=== PATIENT | female | born 1950 | race Caucasian/White ===

== ENCOUNTER → 2018-08-18 | Outpatient (CLI) | payer OTHER, MEDICARE | LOC: FIMAGING 13:04 | PROVIDERS: ATTEND Orthopaedic Surgery | DX: M16.11 Unilateral primary osteoarthritis, right hip (principal) ==

== ENCOUNTER 2018-08-20 07:15 | Inpatient (IN) | payer OTHER, MEDICARE ==
--- NOTE | 2018-09-14 06:40 | PDHPUP ---
History & Physical Update H&P update statement: This history and physical update is based on an assessment of the patient which was completed after admission or registration (within 24 hours), but prior to the surgery/procedure. H&P update: no change in patient's condition since H&P completed
--- NOTE | 2018-09-14 06:40 | PDIAF ---
- Diagnosis Diagnosis: right hip djd Code Status: Full Code - Medication Management Discharge Medications: electronically signed and located in the Home Medication List. - Orders Services needed: Home Care, Physical Therapy Home Care Face to Face: I certify that this patient was under my care and that I had the required [id number] encounter meeting the encounter requirements on the discharge day. My findings support the fact that the patient is homebound as defined in Home Care Face to Face Continued: CMS Chapter 7 Medicare Benefits Manual 30.1.1 , The condition of the patient is such that there exists a normal inability to leave home and consequently, leaving home would require a considerable and taxing effort. Diet Recommendation: no restrictions on diet Diet Texture: Regular Texture Diet Additional Instructions: TOTAL JOINT ARTHROPLASTY DISCHARGE INSTRUCTIONS 1. Your surgeon follows the [facility] protocol for reducing your risk of DVT (blood clots) following surgery. Medication will be ordered to prevent blood clots. A sudden increase in calf pain and/or swelling could indicate a blood clot in your leg. If this occurs, please call your surgeon or his/her regulatory assistant. An ultrasound of the leg may be necessary to diagnose a blood clot. If you have conditions that make you a higher risk for blood clots, your surgeon may use more aggressive ways to prevent them. Notify your surgeon if you think you are a high risk for blood clots. 2. Wear your white surgical stockings (SUE hose) for 2 weeks. This decreases your swelling and may help prevent blood clots. It is ok to remove SUE hose at night time to give your legs a break. 3. Swelling and bruising in the surgical leg is common. If you feel that it is excessive, please notify your surgeon. 4. Elevate your surgical leg with the ankle above the hip several times every day. Please keep the leg straight when you elevate by putting pillows under your foot. Do not put pillows under your knee. This will make being able to fully straighten more difficult. This is uncomfortable, but try to do it as much as possible. 5. For total knee replacements use compressive wrap on your knee for 3-5 days after surgery, then you can discontinue it. 6. Use a walker or crutches for 1-2 weeks. Progress your weight-bearing as tolerated. You may start to use a cane when you feel stable and safe. 7. You will receive physical therapy instructions in the hospital. Continue those exercises at home. There are additional exercises in the total joint booklet you were given before surgery. Outpatient physical therapy will begin 7- 10 days after surgery. Please schedule this in advance. 8. Use ice on your knee at least 3-5 times every day for 30 minutes. This helps reduce pain and swelling. Also use it at night before falling asleep. 9. Leave your surgical dressing in place for 2 weeks. Your dressing is water resistant, but not waterproof. Cover it with Saran Wrap or Ohkko-s-Sfau before showering. You may shower as soon as you feel safe entering a shower. If you notice bleeding from your incision 2 or 3 days after surgery, please notify your surgeon. 10. Due to narcotics, decreased activity and altered diet, most patients experience constipation after surgery. Use qyxi-vmk-oedzeyc stool softeners while you are on narcotics. 11. You may drive a car when you are comfortable bearing weight, have good muscular control of your leg and are off narcotics. This usually occurs 2-4 weeks after surgery, depending on which leg was operated on. 12. If there are questions not addressed here, please refer the [facility] book given for more information. If you still have questions, please contact your surgeon s office. 13. If you have a life-threatening emergency, please call 911 and go to the emergency room immediately. For non-life threatening emergencies, please call your physicians office for advice before going to the emergency room. - Follow Up Care Current Providers and Referrals: Mayra Arreola MD [Primary Care Provider] - Joce Parmar MD [Medical Doctor] -
[2018-09-14] MEDS ORDERED: ceFAZolin 1 GM/5 ML SYR ONE (08:11)
[2018-09-14] MEDS ORDERED: FAMOTIDINE 20 MG TAB PO ONE (08:19)
[2018-09-14] MEDS ORDERED: ACETAMINOPHEN 325 MG TAB PO ONE (08:19)
[2018-09-14] MEDS ORDERED: ceFAZolin 2 GM/DEXTROSE 100 ML IV ONE (08:19)
[2018-09-14] MEDS ORDERED: LR 1,000 ML IV ONE (08:21)
[2018-09-14] MEDS ORDERED: MIDAZOLAM 2 MG/2 ML VIAL IVP ONE (09:25)
--- NOTE | 2018-09-14 09:25 | PDANEPAE ---
ANE History of Present Illness right hip OA for ROCKY ANE Past Medical History - Cardiovascular History Hx Hypertension: No Hx Arrhythmias: No Hx Chest Pain: No Hx Coronary Artery / Peripheral Vascular Disease: No Hx CHF / Valvular Disease: No Hx Palpitations: No - Pulmonary History Hx COPD: No Hx Asthma/Reactive Airway Disease: No Hx Recent Upper Respiratory Infection: No Hx Oxygen in Use at Home: No Hx Sleep Apnea: No Sleep Apnea Screening Result - Last Documented: Negative - Neurologic History Hx Cerebrovascular Accident: No Hx Seizures: No Hx Dementia: No - Endocrine History Hx Diabetes: No Obesity: no - Renal History Hx Renal Disorders: No - Liver History Hx Hepatic Disorders: No - Neurological & Psychiatric Hx Hx Neurological and Psychiatric Disorders: Yes Neurological / Psychiatric History Comment: DEPRESSION - Cancer History Hx Cancer: No - Congenital Disorder History Hx Congenital Disorders: No - GI History Hx Gastrointestinal Disorders: No - Other Health History Other Health History: YEARS AGO EYE INFECTIONS/ALLERGIES PLACED ON DAILY ANTIHISTAMINE FOR MANAGEMENT - Chronic Pain History Chronic Pain: Yes (RT HIP) - Surgical History Prior Surgeries: RT CATARACT 2009. LT BUNION AND HAMMER TOE REPAIR. APPENDECTOMY ANE Review of Systems Review of systems is: negative Review of Systems: - Exercise capacity METS (RN): 4 METS ANE Patient History - Allergies Allergies/Adverse Reactions: oxycodone [From Percocet] Allergy (Verified 09/01/18 10:58) Hives/Vomiting Sulfa (Sulfonamide Antibiotics) Allergy (Verified 09/04/18 10:37) Rash - Home Medications Home medications: home medication list seen and reviewed Home Medications: Alendronate Sodium [Fosamax 70 MG (*)] 70 mg PO NICOLE@0700 09/01/18 [Last Taken 1 Week Ago ~09/07/18] Aspirin [Aspirin 81mg (*)] 81 mg PO DAILY 09/01/18 [Last Taken 1 Week Ago ~09/07] Calcium Carbonate [Oyster Shell Calcium 500 mg (*)] 500 mg PO DAILY 09/01/18 [ Last Taken 1 Week Ago ~09/07/18] Citalopram Hydrobromide [celeXA 10 MG] 10 mg PO DAILY 09/01/18 [Last Taken 09/13] Cyanocobalamin [Vitamin B12 (*)] 1,000 mcg PO DAILY 09/01/18 [Last Taken 1 Week Ago ~09/07/18] Glucosamine/Chondroitin [Glucosamine/Chondroitin (*)] 1 each PO DAILY 09/01/18 [ Last Taken 1 Week Ago ~09/07/18] Herbals/Supplements -Info Only 1 ea PO DAILY 09/01/18 [Last Taken 1 Week Ago ~] Ibuprofen [Motrin (*)] 200 mg PO DAILY PRN 09/01/18 [Last Taken 1 Week Ago ~10/23] Loratadine [Claritin 10 mg] 10 mg PO DAILY 09/01/18 [Last Taken 09/13/18] Multivitamins [Multivitamin (*)] 1 each PO DAILY 09/01/18 [Last Taken 1 Week Ago ~09/07/18] Sumatriptan Succinate [Imitrex] 100 mg PO DAILY PRN 09/01/18 [Last Taken 1 Month Ago ~08/17/18] - NPO status NPO Since - Liquids (Date): 09/14/18 NPO Since - Liquids (Time): 06:30 NPO Since - Solids (Date): 09/13/18 NPO Since - Solids (Time): 18:30 - Anes Hx Anes Hx: no prior problems - Smoking Hx Smoking Status: Never smoked ANE Labs/Vital Signs - Vital Signs Blood Pressure: 136/76 Heart Rate: 74 Respiratory Rate: 16 O2 Sat (%): 97 Height: 162.56 cm Weight: 58.967 kg ANE Physical Exam - Airway Neck exam: FROM Mallampati Score: Class 1 Mouth exam: normal dental/mouth exam - Pulmonary Pulmonary: no respiratory distress - Cardiovascular Cardiovascular: regular rate and rhythym - ASA Status ASA Status: II ANE Anesthesia Plan Anesthesia Plan: spinal
[2018-09-14] MEDS ORDERED: PROPOFOL/EMULSION 500 MG/50 ML BOTTLE IV ONE (09:30)
[2018-09-14] MEDS ORDERED: BUPIVACAINE/DEXTROSE 7.5MG/ML 2 ML SPINAL AMP SP ONE (09:32)
[2018-09-14] MEDS ORDERED: LIDOCAINE 2% 5 ML SDV ONE (09:34)
[2018-09-14] MEDS ORDERED: TRANEXAMIC ACID 1,000 MG in NS 100 ML IV ONE (10:15)
[2018-09-14] MEDS ORDERED: ROPIVACAINE 0.2% 80 MG, EPINEPHrine 0.2 MG, KETOROLAC TROMETHAMINE 30 MG in SYRINGE 0 ML IU ONE (10:15)
[2018-09-14] MEDS ORDERED: ePHEDrine SULFATE 25 MG/5 ML SYR ONE (10:29)
[2018-09-14] MEDS ORDERED: HYDROCODONE/APAP 5/325 TAB PO PRN (10:41)
[2018-09-14] MEDS ORDERED: ACETAMINOPHEN 500 MG TAB PO PRN (10:41)
[2018-09-14] MEDS ORDERED: ONDANSETRON 4 MG/2 ML VIAL IVP PRN ×2 (10:41→11:19)
[2018-09-14] MEDS ORDERED: NALOXONE HCL 0.4 MG/ML INJ IVP PRN (10:41)
[2018-09-14] MEDS ORDERED: LR 500 ML IV PRN (10:41)
[2018-09-14] MEDS ORDERED: HYDROmorphONE/DILAUDID 2 MG/ML INJ IVP PRN (10:41)
[2018-09-14] MEDS ORDERED: fentaNYL 100 MCG/2 ML INJ IVP PRN (10:41)
--- NOTE | 2018-09-14 10:42 | POSTANESTH ---
Post Anesthetic Evaluation Cardiovascular Status: Normal, Stable Respiratory Status: Normal, Stable Level of Consciousness/Mental Status: Can Participate in Eval, Alert and Oriented Pain Control: Adequate, Prn Tx Ordered Nausea/Vomiting Control: Adequate, Prn Tx Ordered Complications Possibly Related to Anesthesia: None Noted
[2018-09-14] MEDS ORDERED: diphenhydrAMINE 25 MG CAP PO PRN (11:19)
[2018-09-14] MEDS ORDERED: PROMETHAZINE HCL 25 MG SUPPR PR PRN (11:19)
[2018-09-14] MEDS ORDERED: DIPHENOXYLATE/ATROPINE LOMOTIL 1 TAB PO PRN (11:19)
[2018-09-14] MEDS ORDERED: LACTULOSE 20 GM/30 ML UDCUP PO PRN (11:19)
[2018-09-14] MEDS ORDERED: METOCLOPRAMIDE 10 MG/2 ML VIAL IVP PRN (11:19)
[2018-09-14] MEDS ORDERED: PROMETHAZINE HCL 25 MG/ML INJ IVP PRN (11:19)
[2018-09-14] MEDS ORDERED: ONDANSETRON DISINTEGRATING 4 MG TAB PO PRN (11:19)
[2018-09-14] MEDS ORDERED: BISACODYL 10 MG SUPP PR PRN (11:19)
[2018-09-14] MEDS ORDERED: MAGNESIUM HYDROXIDE 30 ML UDCUP PO PRN (11:19)
[2018-09-14] MEDS ORDERED: POLYETHYLENE GLYCOL 3350 17 GM PKT PO PRN (11:19)
[2018-09-14] MEDS ORDERED: TEMAZEPAM 15 MG CAP PO PRN (11:19)
[2018-09-14] MEDS ORDERED: traMADol 50 MG TAB PO PRN (11:19)
[2018-09-14] MEDS ORDERED: CYCLOBENZAPRINE 10 MG TAB PO PRN (11:19)
--- NOTE | 2018-09-14 11:19 | POSTOPPROG ---
Post Op Note Date of Operation: 09/14/18 Surgeon: Joce Parmar Ethyl Blender: ernestina Anesthesiologist: gonzales Anesthesia: Spinal Pre-op Diagnosis: right hip djd Post-op Diagnosis: same Indication: oziel Procedure: right nessa Inf/Abcess present in the surg proc area at time of surgery?: No Depth: Deep Incisional (Fascial) EBL: 100-500
[2018-09-14] MEDS ORDERED: LR 1,000 ML IV SCH (11:30)
--- NOTE | 2018-09-14 12:32 | PDMN ---
Medical Necessity Medical necessity: [facility] S560 Hip Arthroplasty, A-2 days: 68 yo s/p R ROCKY, [facility] IP only
[2018-09-14] MEDS ORDERED: SUMAtriptan 50 MG TAB PO PRN (14:15)
[2018-09-14] MEDS: HYDROCODONE/APAP 10/325 TAB PO PRN ×2 (14:30→21:03)
[2018-09-14] MEDS: TRANEXAMIC ACID 650 MG TAB PO SCH ×2 (14:31→21:05)
[2018-09-14] MEDS: ceFAZolin 2 GM/DEXTROSE 100 ML IV SCH (17:52)
[2018-09-14] MEDS: ACETAMINOPHEN 325 MG TAB PO SCH ×2 (18:29→21:02)
[2018-09-14] MEDS: ASPIRIN 325 MG TAB PO SCH (21:02)
[2018-09-14] MEDS: FAMOTIDINE 20 MG TAB PO SCH (21:03)
[2018-09-14] MEDS: SENNOSIDES/DOCUSATE SODIUM TAB PO SCH (21:04)
[2018-09-15] MEDS: ceFAZolin 2 GM/DEXTROSE 100 ML IV SCH (02:39)
[2018-09-15] MEDS: HYDROCODONE/APAP 10/325 TAB PO PRN (02:40)
[2018-09-15] MEDS: ACETAMINOPHEN 325 MG TAB PO SCH ×2 (04:35→12:07)
[2018-09-15] MEDS: TRANEXAMIC ACID 650 MG TAB PO SCH (06:23)
--- NOTE | 2018-09-15 06:52 | PDIAF ---
- Diagnosis Diagnosis: right hip djd Code Status: Full Code - Medication Management Discharge Medications: electronically signed and located in the Home Medication List. - Orders Services needed: Home Care, Physical Therapy Home Care Face to Face: I certify that this patient was under my care and that I had the required [id number] encounter meeting the encounter requirements on the discharge day. My findings support the fact that the patient is homebound as defined in Home Care Face to Face Continued: CMS Chapter 7 Medicare Benefits Manual 30.1.1 , The condition of the patient is such that there exists a normal inability to leave home and consequently, leaving home would require a considerable and taxing effort. Diet Recommendation: no restrictions on diet Diet Texture: Regular Texture Diet Additional Instructions: TOTAL JOINT ARTHROPLASTY DISCHARGE INSTRUCTIONS 1. Your surgeon follows the [facility] protocol for reducing your risk of DVT (blood clots) following surgery. Medication will be ordered to prevent blood clots. A sudden increase in calf pain and/or swelling could indicate a blood clot in your leg. If this occurs, please call your surgeon or his/her timber management assistant. An ultrasound of the leg may be necessary to diagnose a blood clot. If you have conditions that make you a higher risk for blood clots, your surgeon may use more aggressive ways to prevent them. Notify your surgeon if you think you are a high risk for blood clots. 2. Wear your white surgical stockings (SUE hose) for 2 weeks. This decreases your swelling and may help prevent blood clots. It is ok to remove SUE hose at night time to give your legs a break. 3. Swelling and bruising in the surgical leg is common. If you feel that it is excessive, please notify your surgeon. 4. Elevate your surgical leg with the ankle above the hip several times every day. Please keep the leg straight when you elevate by putting pillows under your foot. Do not put pillows under your knee. This will make being able to fully straighten more difficult. This is uncomfortable, but try to do it as much as possible. 5. For total knee replacements use compressive wrap on your knee for 3-5 days after surgery, then you can discontinue it. 6. Use a walker or crutches for 1-2 weeks. Progress your weight-bearing as tolerated. You may start to use a cane when you feel stable and safe. 7. You will receive physical therapy instructions in the hospital. Continue those exercises at home. There are additional exercises in the total joint booklet you were given before surgery. Outpatient physical therapy will begin 7- 10 days after surgery. Please schedule this in advance. 8. Use ice on your knee at least 3-5 times every day for 30 minutes. This helps reduce pain and swelling. Also use it at night before falling asleep. 9. Leave your surgical dressing in place for 2 weeks. Your dressing is water resistant, but not waterproof. Cover it with Saran Wrap or Akeai-h-Alvu before showering. You may shower as soon as you feel safe entering a shower. If you notice bleeding from your incision 2 or 3 days after surgery, please notify your surgeon. 10. Due to narcotics, decreased activity and altered diet, most patients experience constipation after surgery. Use lxfx-ycr-jgxisne stool softeners while you are on narcotics. 11. You may drive a car when you are comfortable bearing weight, have good muscular control of your leg and are off narcotics. This usually occurs 2-4 weeks after surgery, depending on which leg was operated on. 12. If there are questions not addressed here, please refer the [facility] book given for more information. If you still have questions, please contact your surgeon s office. 13. If you have a life-threatening emergency, please call 911 and go to the emergency room immediately. For non-life threatening emergencies, please call your physicians office for advice before going to the emergency room. - Follow Up Care Current Providers and Referrals: Mayra Arreola MD [Primary Care Provider] - Joce Parmar MD [Medical Doctor] -
--- NOTE | 2018-09-15 06:53 | SOAPPROG ---
SOAP Progress Note Assessment/Plan: Assessment: s/p right nessa Plan:d/c home wean all meds dvt precautions reviewed f/u at two weeks seek attn for increasing complaints 09/15/18 06:52 Subjective: nausea no cp or sob Objective: Vital Signs Temp Pulse Resp BP Pulse Ox 37.3 C 80 16 90/40 L 92 09/15/18 04:00 09/15/18 04:00 09/15/18 04:00 09/15/18 04:00 09/15/18 04:00 09/14/18 09/15/18 09/16/18 05:59 05:59 05:59 Intake Total 1450 Output Total 1700 400 Balance -250 -400 on commode dressing intact xrays stable alignement no fx or lucency ICD10 Worksheet Patient Problems: Problems Problem Status Onset Hip arthritis Acute - ICD10 Problem Qualifiers (1) Hip arthritis
[2018-09-15 07:44] VITALS: BP 90/48
[2018-09-15] MEDS: SENNOSIDES/DOCUSATE SODIUM TAB PO SCH (08:23)
[2018-09-15] MEDS: FAMOTIDINE 20 MG TAB PO SCH (08:23)
[2018-09-15] MEDS: ASPIRIN 325 MG TAB PO SCH (08:23)
[2018-09-15] MEDS ORDERED: CITALOPRAM 20 MG TAB PO SCH (09:00)
[2018-09-15] MEDS ORDERED: CETIRIZINE 10 MG TAB PO SCH (09:00)
--- NOTE | 2018-09-15 10:18 | ASMTLACE ---
ROXIE Length of stay for Answers: 2 days current admission Acuity / Level of Answers: Yes Care: Did the patient have an inpatient admission? Comorbidities - select Answers: Opioid dependence all that apply / Chronic pain # of Emergency department Answers: 1-2 visits in the last 6 months Social determinants Answers: Mental health diagnosis (anxiety, depression, pers onality disorders, etc.) Score: 13 Date Signed: 09/15/2018 10:17 AM Electronically Signed By:FADY Chapman
--- NOTE | 2018-09-15 11:48 | ASMTCMCOM ---
CM Note CM Note Notes: Pt had planned hip surgery. Pt dghtr Holly to stay with her at d/c. Pt medically stable for d/c with [facility], orders sent in Allscripts. Date Signed: 09/15/2018 11:46 AM Electronically Signed By:FADY Chapman
--- NOTE | 2018-09-15 14:14 | ASDISCHSUM ---
Discharge Information Plan Status:Home with Home Health Medically Cleared to Leave: Discharge Date:09/15/2018 01:01 PM CM D/C Disposition: ADT D/C Disposition:Home Health Service Projected Discharge Date:09/15/2018 11:00 AM Transportation at D/C: Discharge Delay Reason: Follow-Up Date:09/15/2018 11:00 AM Discharge Slot: Final Diagnosis: Placement Information Referral Type:*Home Health Care Services Referral ID:[id number] Provider Name:[facility] Address 1:[address] [place] [address] Address 2: City:[place] Selection Factors: State:[place] Patient Contact Information Contact Name:BELKYS Relationship:Daughter Address: Work Phone: City: [facility] Phone: [facility] Code: Email: Financial Information Financial Class:Medicare Primary Plan Desc:MEDICARE INPATIENT Primary Plan Number:[id number] Secondary Plan Desc:AARP/MDR SUPPLEMENT Secondary Plan Number:[id number] Assessment Information LACE LACE Length of stay for Answers: 2 days current admission Acuity / Level of Answers: Yes Care: Did the patient have an inpatient admission? Comorbidities - select Answers: Opioid dependence all that apply / Chronic pain # of Emergency department Answers: 1-2 visits in the last 6 months Social determinants Answers: Mental health diagnosis (anxiety, depression, pers onality disorders, etc.) Score: 13 Date Signed: 09/15/2018 10:17 AM Electronically Signed By:FADY Chapman [facility] CM Progress Note CM Note CM Note Notes: Pt had planned hip surgery. Pt dghtr Holly to stay with her at d/c. Pt medically stable for d/c with [facility], orders sent in Allscripts. Date Signed: 09/15/2018 11:46 AM Electronically Signed By:FADY Chapman Intervention Information
--- NOTE | 2018-09-15 14:47 | GDS ---
[f rep st] DISCHARGE SUMMARY ADMIT DIAGNOSIS: Right hip degenerative joint disease. DISCHARGE DIAGNOSIS: Right hip degenerative joint disease. PROCEDURE: Right total hip arthroplasty. HISTORY OF PRESENT ILLNESS: The patient is a 68-year-old woman with end-stage arthritis to her right hip. She presents for elective total hip replacement. HOSPITAL COURSE: The patient was admitted overnight after uncomplicated total hip arthroplasty. Pos toperative course demonstrated nausea. At the time of discharge, she is tolerating an oral diet. Pa in is well controlled on oral medicines. She is voiding without difficulty. Dressing is clean, dry, and intact. DISCHARGE ACTIVITY: She is weightbearing as tolerated. Anterior precautions to keep the dressing cl shannan, dry, intact. Seek attention for increasing redness, swelling, drainage, discharge, leg swelling , or other focal complaint. DISCHARGE MEDICATIONS: [place] 10/325, and tramadol 1-2 every 6 hours p.r.n. pain, aspirin 325 mg p.o. daily, Zofran 4 mg orally every 8 hours p.r.n. nausea. FOLLOWUP: In 2 weeks. /[id number]/MODL
--- NOTE | 2018-09-15 14:57 | GOP ---
[f rep st] OPERATIVE REPORT DATE OF OPERATION: 09/14/2018 SURGEON: Joce Parmar MD [facility] NURSE: Chema Marcelo, registered nurse surgical services, who was a medical necessity for the entirety of the case. PREOPERATIVE DIAGNOSIS: Right hip degenerative joint disease. POSTOPERATIVE DIAGNOSIS: Right hip degenerative joint disease. PROCEDURE PERFORMED: Right total hip arthroplasty-MAKOplasty/anterior. FINDINGS: SPECIMENS: To Pathology, the femoral head. DESCRIPTION OF PROCEDURE: The patient was identified in the preanesthesia area. The right hip clear ly demarcated as operative site with indelible marker. She was given 2 g of Ancef intravenously en r oute to the operative suite. In the OR, spinal anesthetic was placed. She was positioned in the sup ine position. The pelvis and both lower extremities were sterilely prepped and draped in the usual f ashion. Appropriate time-out procedure was carried out. Attention was first turned to the left hip. A 2 cm incision was made over the iliac crest. Three pins were then placed and the pelvic referenc e array affixed. Attention was then turned to the right hip. An anterior approach was made. Thick subcutaneous flaps were elevated. The tensor was opened in the origin of its fibers. The muscle retracted laterally. The underlying vascular structures were ligated after cautery. Retractors were placed in an extraca psular position and a T capsulotomy was made. Retractors were placed into an intracapsular position. An acetabular checkpoint was placed. A bony wedge was withdrawn from the femoral neck as was the f emoral head. Soft tissue contents of the labrum were sharply excised. Using the MAKOplasty software , resections were made for a 48 mm diameter cup. A 48 mm acetabular shell was then placed, impacted, and confirmed to be fully seated. A 0-degree X3 liner with 32 mm inner diameter was placed and conf irmed to be fully seated. The hip was then delivered through the wound with the use of soft tissue r eleases and extension of the foot of the table. The proximal canal was opened. Serial broaching car ried out to a size 4 stem. Trial reduction was carried out and ultimately a 32 mm +4 mm Biolox head was selected over the final size 4 implant. Intraoperative fluoroscopy confirmed appropriate positio flaca and alignment. This allowed rastafarian of leg lengths. Full stability with full extension, ex ternal rotation to 90 degrees. The wound was copiously irrigated. No drain was utilized. The tissu e was injected with ropivacaine, Toradol and epinephrine. The subcutaneous tissue was closed using 0 Vicryl, 2-0 Monocryl and cheo. Sterile dressing was applied. The patient was awakened, extubate d, taken to recovery room in good, stable condition. HISTORY OF PRESENT ILLNESS: The patient is a 68-year-old woman with end-stage arthritis to her right hip. She has clinical and radiographic features consistent with this. She presents for elective to lei hip replacement. She understands the risks, benefits, alternatives, and wished to proceed. TOTAL TOURNIQUET TIME: None. COMPLICATIONS: None. IMPLANTS: [place] Trident II acetabular shell, 48 mm 0 degree X3 liner, size 32 mm inner diameter Ac colade II 127 degree neck angle hip stem size 4, and a Biolox ceramic head 32 mm, +4 mm neck length. /[id number]/MODL
== END 2018-09-15 13:01 | disposition home health service (06) | DRG 470 ==
LOC: F3N 09-14 07:50
PROVIDERS: ADMIT Orthopaedic Surgery; ATTEND Orthopaedic Surgery
PROC: 0SR904A Replacement of Right Hip Joint with Ceramic on Polyethylene Synthetic Substitute, Uncemented, Open Approach (ICD-10-PCS; principal; 2018-09-14 10:15)
PROC: 8E0YXCZ Robotic Assisted Procedure of Lower Extremity (ICD-10-PCS; principal; 2018-09-14 10:15)
DX: M16.11 Unilateral primary osteoarthritis, right hip (principal); R11.0 Nausea
CPT/HCPCS: 97116-GP; 97161-GP; 97165-GO; 97530-GP; J0171; J0690; J1885; J2250; J2405; J2704; J2795